=== PATIENT | male | born 1990 | race African-American/Black ===

== ENCOUNTER 2017-08-25 13:31 | Emergency (ER) | payer MEDICAID ==
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
== END 2017-08-25 14:48 | disposition home or self-care (01) ==
LOC: FB.ED 13:31
DX: S16.1XXA Strain of muscle, fascia and tendon at neck level, initial encounter (principal); X50.9XXA Other and unspecified overexertion or strenuous movements or postures, initial encounter
CPT/HCPCS: 99283

== ENCOUNTER 2018-01-10 18:21 | Emergency (ER) | payer MEDICAID ==
[2018-01-10] MEDS ORDERED: Ondansetron 4 MG/2 ML SDV IVPUSH ONE (18:30)
[2018-01-10] MEDS ORDERED: HYDROmorphone 2 MG/ML SDV IVPUSH ONE (18:30)
[2018-01-10] MEDS ORDERED: Ketorolac 30 MG/ML SDV IVPUSH ONE (18:37)
[2018-01-10] MEDS ORDERED: Sodium Chloride 0.9% 1,000 ML IV ONE (18:38)
[2018-01-10] MEDS ORDERED: Acetaminophen/HYDROcodone 325-5 MG Tab PO PRN (19:27)
--- NOTE | 2018-01-13 10:47 | ER ---
DATE SEEN: 01/10/2018 TIME SEEN: This 18-year-old patient was seen at 1820 hours. CHIEF COMPLAINT: Right flank and right abdominal discomfort, sudden onset, half hour ago. HISTORY OF PRESENT ILLNESS: The patient was hyperventilating when he came to Emergency Room, complaining of pain about 8 to 9 out of 10 in intensity. He has never had it before. Denies previous kidney stones. Denies hematuria. Denies using street drugs. Mother has hypertension. Father is unknown. He has 6 brothers and 2 sisters, and he has had a previous documentation of chronic neck pain on ER visit in 2017. The patient was transported by ambulance. En route was given fentanyl at 1815 hours, 75 mcg, and he has pain radiating down to his groin. MEDICAL HISTORY: Asthma. He had a fractured collarbone. Anxiety, depression, suicide attempt. Denies diabetes, high blood pressure, hypertension, other serious illness. He actually denied asthma to me, but told he had asthma to the nurse. He "grew out of his asthma." REVIEW OF SYSTEMS: Negative except for noted above. PHYSICAL EXAMINATION: CONSTITUTIONAL: The patient is hyperventilating, in marked pain, and wailing it out loud. VITAL SIGNS: Blood pressure 135/88; heart rate 67; respirations 22, tachypnea; oxygen saturation 100%; temperature is 36.3 degrees centigrade. GENERAL: An male, who is in moderate discomfort. HEENT: PERRLA intact. Pharynx without abnormality. NECK: Supple. No thyromegaly or masses on neck. No cervical adenopathy. LUNGS: Clear without rales or rhonchi or wheezes. HEART: S1, S2. No murmur. ABDOMEN: Moderate right groin discomfort. Marked right flank discomfort on CVA percussion. Bowel sounds are present. Mild voluntary guarding, right side. No rigidity. No rebound. GENITOURINARY: Testes descend, negative. Circumcise, negative. EXTREMITIES: Without abnormality. DIAGNOSTIC STUDIES: CT scan demonstrates multiple stones. A 2 mm stone is noted in distal ureter with mild hydroureter and other stones noted in left and right kidney. ASSESSMENT: 1. Renal stones, etiology for the patient's abdominal pain. 2. Hyperventilation. 3. Low pain tolerance. 4. [place] in urine drug test. PLAN: He was advised to collect the urine in a urinal, but then he went to the bathroom to pee, and we heard him pee, but he stated he did not pee, and then now he is trying to collect urine. So it is very possible he just poured his urine out to get another urine specimen or to not get one. Eventually, he did pee 3 to 5 mL. This was sent to the lab. Urine drug screen demonstrated marijuana and urinalysis negative. The patient was sent home with Toradol 10 mg q.4-6 hours p.r.n. pain, no more than 4 per day, 16 tablets prescribed. Follow up with doctor next week. Push fluids. The patient also advised to strain his urine and bring the passed stone to his doctor. /[id number] ZENOBIA/GERARDO
== END 2018-01-10 20:01 | disposition home or self-care (01) ==
LOC: FB.ED 18:21
DX: N20.2 Calculus of kidney with calculus of ureter (principal); F12.129 Cannabis abuse with intoxication, unspecified; F41.9 Anxiety disorder, unspecified; F32.9 Major depressive disorder, single episode, unspecified; J45.909 Unspecified asthma, uncomplicated; R06.4 Hyperventilation; M54.5 Low back pain
CPT/HCPCS: 74176; 80305; 81001; 96361; 96374; 96375; 99284; J1885; J2405; J7030